=== PATIENT | female | born 2000 | race Caucasian/White ===

== ENCOUNTER → 2023-02-26 12:03 | Outpatient (BNVA) | payer BC, SELFPAY | PROVIDERS: Visit Provider Emergency Medicine | DX: Z11.1 Encounter for screening for respiratory tuberculosis (principal) | CPT/HCPCS: 86480 ==

== ENCOUNTER → 2023-03-07 12:20 | Outpatient (BNVA) | payer BC, SELFPAY | PROVIDERS: Referring Provider Emergency Medicine; Visit Provider Emergency Medicine | DX: Z11.1 Encounter for screening for respiratory tuberculosis (principal) | CPT/HCPCS: 86480 ==